=== PATIENT | female | born 1975 | race Caucasian/White ===

== ENCOUNTER 2020-01-12 19:41 | Emergency (ER) | payer OTHER ==
[2020-01-12] MEDS ORDERED: NAPROXEN 500 MG TABLET PO ONE (20:14)
[2020-01-12] MEDS ORDERED: NAPROXEN 500 MG TABLET ONE (20:16)
[2020-01-12 20:17] VITALS: BP 130/89; PULSE 86; TEMP 98.7; BMI 31.8
--- NOTE | 2020-01-12 20:42 | PDOC ---
Documentation entered by Cesar Burger SCRIBE, acting as scribe for Marge Rai MD. Marge Rai MD: This documentation has been prepared by the Tao randolph Angel, SCRIBE, under my direction and personally reviewed by me in its entirety. I confirm that the documentation accurately reflects all work, treatment, procedures, and medical decision making performed by me. History of Present Illness - General Chief Complaint: Hematuria Stated Complaint: HEMATURIA, REQUESTING CT SCAN Time Seen by Provider: 01/12/20 19:46 History Source: Patient Exam Limitations: No Limitations - History of Present Illness Initial Comments: 01/12/20 20:21 The patient is a 44 year old female with a significant past medical history of kidney stones who presents to the ED with hematuria since . The patient states she has been experiencing a constant back pain which she thinks is related to her symptoms. The patient believes she may have another kidney stone although she went to Urgent Care today for an ultrasound and the results were unremarkable. The patient has no other complaints here in the ED. The patient denies any nausea, dysuria or change in frequency. 01/12/20 20:39 Assessment and plan: This is a 44-year-old female who comes in complaining of a right paraspinal pain. Patient was concerned that it may be a kidney stone however she went to urgent care center approximately a week ago and had an ultrasound ordered the ultrasound was negative for any stone but patient continued to have pain so she came in for evaluation. A repeat urine here did show a trace amount of blood and some protein but otherwise no infection. Patient also did say that she is at the end of her menses which may account for the blood in her urine. Patient was told to take an anti-inflammatory and follow-up with her primary care doctor. As this most likely is muscular rather than kidney stone. Past History - Medical History Allergies/Adverse Reactions: Allergies Allergy/AdvReac Type Severity Reaction Status Date / Time No Known Allergies Allergy Verified 01/12/20 19:55 Home Medications: Ambulatory Orders NK [No Known Home Medication] 01/12/20 Review of Systems - Review of Systems Able to Perform ROS?: Yes Comments:: 01/12/20 20:23 General: No fevers or chills, no weakness, no weight loss HEENT: No change in vision. No sore throat. No ear pain CardioVascular: No chest pain or shortness of breath Respiratory:No cough, or wheezing. Gastrointestinal: no nausea, vomiting, diarrhea or constipation, No rectal bleeding Genitourinary: +Hematuria. No dysuria, or frequency Musculoskeletal: +Back pain. Neurologic: No headache, vertigo, dizziness or loss of consciousness Psychiatric: nor depression Skin: No rashes or easy bruising Endocrine: no increased thirst or abnormal weight change Allergic: no skin or latex allergy All other systems reviewed and normal *Physical Exam - Physical Exam 01/12/20 20:25 GENERAL: The patient is awake, alert, and fully oriented, in no acute distress. HEAD: Normal with no signs of trauma. EYES: Pupils equal, round and reactive to light, extraocular movements intact, sclera anicteric, conjunctiva clear. EXTREMITIES: Normal range of motion, no edema. BACK: +Right paraspinal tenderness on palpation (T10-T12). No spinal tenderness, CVA tenderness, flank tenderness or abdominal tenderness. NEUROLOGICAL: Normal speech, normal gait. PSYCH: Normal mood, normal affect. SKIN: Warm, Dry, normal turgor, no rashes or lesions noted. Discharge - Discharge Information Problems reviewed: Yes Clinical Impression/Diagnosis: Right-sided back pain Qualifiers: Back pain location: thoracic back pain Chronicity: acute Qualified Code(s): M54.6 - Pain in thoracic spine Condition: Good Disposition: HOME - Admission No - Follow up/Referral Referrals: Leticia Arteaga [Primary Care Provider] - - Patient Discharge Instructions Additional Instructions: For the pain take ibuprofen 3 tablets 3 times a day with food do not take on an empty stomach or alternately take naproxen 2 tablets twice a day with food. It is important that you follow-up with your primary care doctor as well as your IVF doctor. Return to the emergency department immediately with ANY new, persistent or worsening symptoms. Continue any medications as previously prescribed by your physician. You should follow up with your primary doctor as soon as possible regarding today's emergency department visit. . Please make sure your doctor reviews the results of your emergency evaluation. Thank you for coming to the Emergency Department today for your care. It was a pleasure to see you today. Please note that your evaluation is INCOMPLETE until you follow-up with your doctor. - Post Discharge Activity
[2020-01-12 20:45] LABS: EPITHELIAL CELLS FEW /hpf
== END 2020-01-12 20:47 | disposition home or self-care (01) ==
LOC: FER 19:41
DX: M54.6 Pain in thoracic spine (principal)
CPT/HCPCS: 81003; 81015; 84703; 87086; 99283-25